=== PATIENT | male | born 1970 | race Two or more races ===

== ENCOUNTER 2018-02-18 09:10 | Emergency (ER) | payer OTHER ==
[~2018-02-18] VITALS: Ht 177.8 cm; Wt 86.2 kg
[~2018-02-18 09:10] MED LIST: CEFADROXIL500 MG PO; KETO10TA2 PO
[2018-02-18] MEDS ORDERED: CYCLOBENZAPRINE10 MG PO (10:25)
[2018-02-18] MEDS ORDERED: NAPROXEN500 M1 PO (10:25)
== END 2018-02-18 10:48 | disposition home or self-care (01) ==
LOC: ER 09:10
DX: M54.2 Cervicalgia (principal)

== ENCOUNTER 2021-10-05 02:10 | Emergency (ER) | payer OTHER ==
[~2021-10-05] VITALS: Ht 177.8 cm; Wt 76.2 kg
[~2021-10-05 02:10] MED LIST changes: +CYCLOBENZAPRINE10 MG PO; +NAPROXEN500 M1 PO
[2021-10-05] MEDS ORDERED: DUI500 PO (05:03)
[2021-10-05] MEDS ORDERED: KETO10TA2 PO (05:03)
== END 2021-10-05 05:10 ==
LOC: ER 02:10
DX: S01.81XA Laceration without foreign body of other part of head, initial encounter (principal); S05.12XA Contusion of eyeball and orbital tissues, left eye, initial encounter; S60.221A Contusion of right hand, initial encounter; W18.39XA Other fall on same level, initial encounter; Y93.9 Activity, unspecified; Y92.89 Other specified places as the place of occurrence of the external cause; Y99.9 Unspecified external cause status

== ENCOUNTER 2021-10-16 10:17 | Emergency (ER) | payer OTHER ==
[~2021-10-16] VITALS: Ht 177.8 cm; Wt 77.1 kg
[~2021-10-16 10:17] MED LIST changes: +DUI500 PO
== END 2021-10-16 12:18 | disposition home or self-care (01) ==
LOC: ER 10:17
DX: Z48.02 Encounter for removal of sutures (principal)